=== PATIENT | male | born 1995 | race Two or more races ===

== ENCOUNTER 2018-02-21 04:54 | Emergency (ER) | payer SELFPAY ==
[~2018-02-21] VITALS: Ht 167.6 cm; Wt 73.2 kg
[2018-02-21 04:57] VITALS: BP 123/75
[2018-02-21] MEDS ORDERED: CEPHALEXIN 500 MG CAPSULE PO ONE (05:30)
[2018-02-21] MEDS ORDERED: SULFAMETH./TRIMETHOPRIM DS 800MG/160MG TABLET PO ONE (05:30)
[2018-02-21] MEDS ORDERED: DIPH,PERTUSS(ACELL),TET VAC/PF 0.5 ML IM-VACC ONE ×2 (05:30→05:32)
[2018-02-21] MEDS ORDERED: LIDOCAINE 2%, 20ML SQ ONE (05:30)
[2018-02-21] MEDS ORDERED: SULFAMETH./TRIMETHOPRIM DS 800MG/160MG TABLET ONE (05:31)
[2018-02-21] MEDS ORDERED: CEPHALEXIN 500 MG CAPSULE ONE (05:31)
[2018-02-21] MEDS ORDERED: LIDOCAINE-MPF 2% ,5ML ONE (05:32)
== END 2018-02-21 06:00 | disposition home or self-care (01) ==
LOC: ED 05:54
DX: L02.31 Cutaneous abscess of buttock (principal)
CPT/HCPCS: 10060; 90471; 90715; 99283; J3490

== ENCOUNTER 2019-07-18 23:03 | Emergency (ER) | payer MEDICAID ==
[~2019-07-18] VITALS: Ht 167.6 cm; Wt 88.9 kg
[2019-07-18 23:11] VITALS: BP 122/78
[2019-07-18] MEDS ORDERED: IBUPROFEN 600 MG TABLET ONE (23:49)
[2019-07-18] MEDS ORDERED: ACETAMINOPHEN 500 MG TABLET ONE (23:49)
[2019-07-19] LABS: RAPID INFLUENZA A POSITIVE (Negative); RAPID INFLUENZA B Negative (Negative)
[2019-07-19] MEDS ORDERED: ACETAMINOPHEN 500 MG TABLET PO ONE
[2019-07-19] MEDS ORDERED: IBUPROFEN 600 MG TABLET PO ONE
== END 2019-07-19 00:32 | disposition home or self-care (01) ==
LOC: ED 07-19 00:25
DX: J10.1 Influenza due to other identified influenza virus with other respiratory manifestations (principal)
CPT/HCPCS: 87081; 87400; 87880; 99283